=== PATIENT | male | born 2005 | race Hispanic/Latino ===

== ENCOUNTER 2024-12-02 11:54 | Emergency (ER) | payer SELFPAY ==
[~2024-12-02] VITALS: Ht 188 cm; Wt 141.1 kg
[2024-12-02 11:54] VITALS: BP 114/67; PULSE 82; RESP 18; TEMP 98.6; O2SAT 94
[2024-12-02] MEDS ORDERED: ZOFRAN ODT ONE (12:21)
[2024-12-02] MEDS: ZOFRAN ODT SL STA (12:26)
[2024-12-02 12:35] LABS: BASOPHIL # 0.0 10^3/uL (0.0-0.1); BASOPHIL % 0.4 % (0.2-1.2); EOSINOPHIL # 0.2 10^3/uL (0.0-0.2); EOSINOPHIL % 1.4 % (0.0-5.0); HEMATOCRIT(ML) 47.8 % (37.0-53.0); IG % 0.40 % (0.00-0.50); LYMPHOCYTES # 1.75 10^3/uL1 (1.2-5.2); LYMPHOCYTES % 15.6 % (24.0-44.0); MEAN CORP HGB 29.3 pg (26-34); MEAN CORP HGB CONCENTRATION 32.6 g/dL (33-36.5); MEAN CORP VOLUME 89.8 fL (78-100); MONOCYTES # 0.7 10^3/uL (0.0-0.4); MONOCYTES % 6.5 % (5.0-12.0); NEUTROPHIL # 8.5 10^3/uL (1.8-8.0); NEUTROPHILS % 75.7 % (41.0-85.0); RED BLOOD CELL 5.32 10^6/uL (4.50-5.90); RED CELL DISTRIBUTION WIDTH 13.1 % (11.5-14.5); WHITE BLOOD CELL 11.2 10^3/uL (4.5-12.5)
[2024-12-02 12:37] LABS: LEUKOCYTE ESTERASE ,URINE NEGATIVE (NEGATIVE); NITRATE,URINE NEGATIVE (NEGATIVE)
[2024-12-02 12:43] LABS: APPEARANCE,URINE CLEAR; UA COLOR YELLOW
[2024-12-02 12:51] LABS: ALANINE AMINOTRANSFERASE(ML) 69.0 U/L (12-78); ALBUMIN(ML) 3.9 g/dL (3.4-5.0); CREATININE SERUM 1.02 mg/dL (0.59-1.40); EST GFR, NON-AA 93.1 (>/=60)
[2024-12-02 13:20] VITALS: BP 107/61; PULSE 65; RESP 18; TEMP 98.6; O2SAT 94
== END 2024-12-02 13:30 | disposition home or self-care (01) ==
LOC: ER 11:54
DX: K52.9 Noninfective gastroenteritis and colitis, unspecified (principal)
CPT/HCPCS: 36415; 74176; 80053; 81001; 83690; 85025; 99284